=== PATIENT | female | born 1955 | race Caucasian/White ===

== ENCOUNTER 2021-05-06 02:29 | Emergency (ER) | payer OTHER ==
[~2021-05-06] VITALS: Ht 157.5 cm; Wt 59.9 kg
[2021-05-06] MEDS ORDERED: ALUMINUM HYD/MAG/SIMETHICONE 30 ML UDC PO ONE (02:50)
--- NOTE | 2021-05-06 03:17 | NUR ---
[facility] in [facility] - 05/06/21 at 0323 by SHERLYN PT MOVED TO ER BED 13
[2021-05-06 03:23] VITALS: BP 116/77
--- NOTE | 2021-05-06 03:23 | NUR ---
PT LAKHWINDER ALS. TAKEN TO BED 13
[2021-05-06 03:41] LABS: BASOPHILS % (AUTO) 0.2 % (0.0-2.0); EOSINOPHILS % (AUTO) 0.1 % (0.0-4.0); HEMATOCRIT 38.4 % (36-48); HEMOGLOBIN 13.2 g/dL (12.0-16.0); LYMPHOCYTES # (AUTO) 0.8 K/uL (2.5-16.5); LYMPHOCYTES % (AUTO) 10.1 % (20.5-51.1); MEAN CORPUSCULAR HEMOGLOBIN 30 pg (27-31); MEAN CORPUSCULAR HGB CONC 34 g/dL (33-37); MEAN CORPUSCULAR VOLUME 88.7 fL (80-94); MONOCYTES # (AUTO) 0.6 K/uL (0.8-1.0); MONOCYTES % (AUTO) 7.2 % (1.7-9.3); NEUTROPHILS # (AUTO) 6.7 K/uL (1.8-7.7); NEUTROPHILS % (AUTO) 82.4 % (42.2-75.2); PLATELET COUNT (AUTO) 158 K/uL (140-450); RED BLOOD CELL COUNT(AUTO) 4.33 MIL/uL (4.20-5.40); RED CELL DISTRIBUTION WIDTH 12.7 % (11.6-13.7); WHITE BLOOD COUNT (AUTO) 8.1 K/uL (4.8-10.8)
[2021-05-06 04:10] LABS: ALBUMIN 3.7 g/dL (3.4-5.0); ANION GAP 9.4 (8-16); CARBON DIOXIDE 31.3 mmol/L (21-32); CREATININE 0.7 mg/dL (0.6-1.3); POTASSIUM 4.7 mmol/L (3.5-5.1); TOTAL BILIRUBIN 0.7 mg/dL (0.0-1.0)
[2021-05-06] MEDS ORDERED: ALUMINUM HYD/MAG/SIMETHICONE 30 ML UDC ONE (04:30)
--- NOTE | 2021-05-06 04:32 | NUR ---
65 YO/F BIBA W/CO OF X2 EPISODES OF CHEST PAIN APPROX 1HR AGO, PT DENIES ANY CHEST PAIN AT THIS TIME BUT REPORTS CHEST PAINWAS MIDSTERNAL 11/26 NON-RAD "INTENSE PAIN", +N, AND DIAPHORESIS AT TIME OF PAIN. PT REPORTS SHE HAS BEEN HAVING DIARRHEA AND SAW PCP WHO PRESCRIBED HER NEW MEED FOR DIARRHEA WHICH PT RELATES TO POSSIBLY CAUSING THE CHEST PAIN. PT DENIES ANY DIZYNESS,FEVER, CHILLS, VOMITING, OR SOB. PT LAYING IN BED AWAKE. BED LOCKED INLOWEST POSITION W X2 SIDERAILS UP FOR PT SAFETY. PT PROVIDED W BLANKETS. BREATHING EVEN AND UNLABORED, CONNECTED TO MONITOR W VSS. NAD NOTED, WILL CONTINUE TO MONITOR. PMH:DENIES NKA
--- NOTE | 2021-05-06 06:51 | NUR ---
PT APPEARS TO BE RESTING W EYES CLOSED IN R SUPINE POSITION. BLANKET ON. VSS. BREARTHING EVEN AN DUNLABORED. NAD NOTED, WILL CONTINUE TO MONITOR.
[2021-05-06] MEDS ORDERED: AZITHROMYCIN 250 MG TAB PO ONE (07:15)
[2021-05-06] MEDS ORDERED: AZIT250T4 PO (07:16)
--- NOTE | 2021-05-06 07:34 | NUR ---
Pt report given to ELENO DE GUZMAN. Transfer of care at this time.
--- NOTE | 2021-05-06 07:39 | NUR ---
RECEIVED REPORT FROM ELENO MILLER. ASSUMED CARE AT THIS TIME.
--- NOTE | 2021-05-06 09:08 | NUR ---
PATIENT DISCONNECTED FROM [employer] GLAZER, AMBULATED TO RESTROOM WITH STEADY GAIT.
--- NOTE | 2021-05-06 09:41 | NUR ---
NOVEL SWAB COLLECTED AND WALKED TO LAB.
[2021-05-06 09:43] VITALS: BP 122/70
--- NOTE | 2021-05-06 09:44 | NUR ---
Patient discharged with v/s stable. Written and verbal after care instructions given and explained. Patient alert, oriented and verbalized understanding of instructions. Ambulatory with steady gait. All questions addressed prior to discharge. ID band removed. Patient advised to follow up with PMD. Rx of ZITHROMAX given. Patient educated on indication of medication including possible reaction and side effects. Opportunity to ask questions provided and answered.
== END 2021-05-06 09:43 | disposition home or self-care (01) ==
LOC: MED 02:29
DX: J18.9 Pneumonia, unspecified organism (principal); Z20.822 Contact with and (suspected) exposure to COVID-19; R10.13 Epigastric pain
CPT/HCPCS: 36415; 71045; 80053; 83690; 84484; 85025; 93005; 99285; U0003